=== PATIENT | female | born 1950 | race Caucasian/White ===

== ENCOUNTER 2017-09-08 00:32 | Emergency (ER) | payer MEDICARE ==
[~2017-09-08] VITALS: Ht 172.7 cm; Wt 127.0 kg
[~2017-09-08 00:32] MED LIST: ALLOPURINOL300 MG PO; CARTIA XT120 MG PO; DIGOXIN125 MCG PO; FENOFIBRATE160 MG PO; LANTUS SOL100 UNIT/1 SUB-Q; LIPITOR10 MG PO; METFORMIN HCL1000 MG PO; METOPROLOL SUC100 MG PO; METOPROLOL TART50 MG PO; NOVOLOG FL100 UNIT/1 SUB-Q; OMEPRAZOLE20 MG PO; TRIAMTERENE-HC1 EAC1 PO; XARELTO20 MG PO
[2017-09-08] MEDS ORDERED: SOTALOL80 MG PO (00:48)
[2017-09-08] MEDS ORDERED: LASIX40 MG PO (00:48)
[2017-09-08] MEDS ORDERED: POTASSIUM CHLO10 MEQ PO (00:48)
[2017-09-08] MEDS ORDERED: LISINOPRIL5 MG PO (00:49)
[2017-09-08] MEDS ORDERED: GABAPENTIN300 MG PO (00:49)
--- NOTE | 2017-09-09 14:46 | EKG ---
[facility] [address] [place] [address] Signed Normal sinus rhythm Normal ECG When compared with ECG of 30-AUG-2016 10:45, Sinus rhythm has replaced Atrial fibrillation Confirmed by SONYA DOBBS MD ([id number]) on 09/09/2017 2:46:35 PM Electronically Signed By: SONYA DOBBS MD 09/09/17 1446 PATIENT NAME: ALLISON NEGRO Electrocardiogram DATE OF : 50 PHYSICIAN: SONYA DOBBS MD REPORT #: [id number] REPORT IS CONFIDENTIAL AND NOT TO BE RELEASED WITHOUT AUTHORIZATION
== END 2017-09-08 04:44 | disposition home or self-care (01) ==
LOC: ED 00:32
DX: R07.9 Chest pain, unspecified (principal); I10 Essential (primary) hypertension; E11.9 Type 2 diabetes mellitus without complications; I48.91 Unspecified atrial fibrillation; Z91.09 Other allergy status, other than to drugs and biological substances; Z79.4 Long term (current) use of insulin; Z79.899 Other long term (current) drug therapy; Z79.84 Long term (current) use of oral hypoglycemic drugs
CPT/HCPCS: 80053; 84484; 85025; 93005; 93010; 99284

== ENCOUNTER 2018-05-03 16:52 | Emergency (ER) | payer MEDICARE ==
[~2018-05-03] VITALS: Ht 172.7 cm; Wt 131.5 kg
--- OUTSIDE RECORDS SUMMARY | ~2018-05-03 | XMS | Clinical Summary ---
Demographics + + + | Address | [address] | | | [place] [address] | + + + | Home Phone | | + + + | Preferred Language | Unknown | + + + | Marital Status | | + + + | Jainism Affiliation | 1041 | + + + | Race | Unknown | + + + | Ethnic Group | Unknown | + + + Author + + + | Author | [facility] | + + + | Organization | [facility] | + + + | Address | Unknown | + + + | Phone | Unavailable | + + + Support + + + + + | Name | Relationship | Address | Phone | + + + + + | Cindi Salamanca | ECON | [address] | | | | | [place] | | | | | [phone] | | + + + + + Care Team Providers + +------+ + | Care Nurse Licensed Practical Name | Role | Phone | + +------+ + | Pete Shelton MD | PP | | + +------+ + Allergies + + + + + + | Active Allergy | Reactions | Severity | Noted | Comments | | | | | Date | | + + + + + + | Povidone Iodine | Hives | High | 02/17/20 | | | | | | 14 | | + + + + + + | Adhesive Tape | Hives | High | 02/17/20 | | | | | | 14 | | + + + + + + Current Medications + + +---------+---------+------+------+-------+ | Prescription | Sig. | Disp. | Refills | Star | End | Statu | | | | | | t | Date | s | | | | | | Date | | | + + +---------+---------+------+------+-------+ | fenofibrate | Take 160 mg by mouth | | | | | Activ | | (TRICOR) 160 MG | daily. | | | | | e | | tablet | | | | | | | + + +---------+---------+------+------+-------+ | metFORMIN | Take 1,000 mg by | | | | | Activ | | (GLUMETZA) 1000 MG | mouth 2 (two) times | | | | | e | | (MOD) 24 hr tablet | daily with meals. | | | | | | + + +---------+---------+------+------+-------+ | rivaroxaban | Take 20 mg by mouth | | | | | Activ | | (XARELTO) 20 MG | daily with dinner. | | | | | e | | tablet | | | | | | | + + +---------+---------+------+------+-------+ | | Take 1 tablet by | | | | | Activ | | triamterene-hydrochl | mouth daily. | | | | | e | | orothiazide | | | | | | | | (MAXZIDE-25) 37.5-25 | | | | | | | | MG per tablet | | | | | | | + + +---------+---------+------+------+-------+ | allopurinol | Take 300 mg by mouth | | | | | Activ | | (ZYLOPRIM) 300 MG | daily. | | | | | e | | tablet | | | | | | | + + +---------+---------+------+------+-------+ | digoxin (LANOXIN) | Take 125 mcg by | | | | | Activ | | 0.125 MG tablet | mouth daily. | | | | | e | + + +---------+---------+------+------+-------+ | insulin aspart | Inject 6 Units into | 10 mL | 0 | 08/2 | | Activ | | (NOVOLOG) 100 | the skin 3 (three) | | | 6/20 | | e | | UNIT/ML | times daily before | | | 14 | | | | injectionIndications | meals. | | | | | | | : Atrial | | | | | | | | fibrillation with | | | | | | | | RVR ([facility]), ARF | | | | | | | | (acute renal | | | | | | | | failure) ([facility]), | | | | | | | | Diabetes mellitus, | | | | | | | | type 2 ([facility]), GERD | | | | | | | | (gastroesophageal | | | | | | | | reflux disease), | | | | | | | | Hypertension, | | | | | | | | Hypomagnesemia, | | | | | | | | Leukocytosis, | | | | | | | | unspecified, Long | | | | | | | | term (current) use | | | | | | | | of anticoagulants, | | | | | | | | TAYLOR on CPAP, | | | | | | | | Palpitations, SOB | | | | | | | | (shortness of | | | | | | | | breath), | | | | | | | | Hyperlipidemia, | | | | | | | | Atrial fibrillation | | | | | | | | ([facility]) | | | | | | | + + +---------+---------+------+------+-------+ | insulin glargine | Inject 10 Units into | 15 mL | 0 | 01/25 | | Activ | | (LANTUS) 100 UNIT/ML | the skin nightly. | | | 12/13 | | e | | | | | | 14 | | | | injectionIndications | | | | | | | | : Atrial | | | | | | | | fibrillation with | | | | | | | | RVR (HCC), ARF | | | | | | | | (acute renal | | | | | | | | failure) (HCC), | | | | | | | | Diabetes mellitus, | | | | | | | | type 2 (HCC), GERD | | | | | | | | (gastroesophageal | | | | | | | | reflux disease), | | | | | | | | Hypertension, | | | | | | | | Hypomagnesemia, | | | | | | | | Leukocytosis, | | | | | | | | unspecified, Long | | | | | | | | term (current) use | | | | | | | | of anticoagulants, | | | | | | | | TAYLOR on CPAP, | | | | | | | | Palpitations, SOB | | | | | | | | (shortness of | | | | | | | | breath), | | | | | | | | Hyperlipidemia, | | | | | | | | Atrial fibrillation | | | | | | | | (HCC) | | | | | | | + + +---------+---------+------+------+-------+ | metoprolol | Take 1 tablet by | 60 | 0 | 01/25 | | Activ | | (LOPRESSOR) 50 MG | mouth 2 (two) times | tablet | | 12/13 | | e | | tabletIndications: | daily. | | | 14 | | | | Atrial fibrillation | | | | | | | | with RVR (HCC), ARF | | | | | | | | (acute renal | | | | | | | | failure) (HCC), | | | | | | | | Diabetes mellitus, | | | | | | | | type 2 (HCC), GERD | | | | | | | | (gastroesophageal | | | | | | | | reflux disease), | | | | | | | | Hypertension, | | | | | | | | Hypomagnesemia, | | | | | | | | Leukocytosis, | | | | | | | | unspecified, Long | | | | | | | | term (current) use | | | | | | | | of anticoagulants, | | | | | | | | TAYLOR on CPAP, | | | | | | | | Palpitations, SOB | | | | | | | | (shortness of | | | | | | | | breath), | | | | | | | | Hyperlipidemia, | | | | | | | | Atrial fibrillation | | | | | | | | (HCC) | | | | | | | + + +---------+---------+------+------+-------+ | diltiazem | Take 1 capsule by | 30 | 0 | 08/2 | | Activ | | (CARDIZEM CD) 120 MG | mouth daily. | capsule | | 6/20 | | e | | 24 hr | | | | 14 | | | | capsuleIndications: | | | | | | | | Atrial fibrillation | | | | | | | | with RVR (HCC), ARF | | | | | | | | (acute renal | | | | | | | | failure) (HCC), | | | | | | | | Diabetes mellitus, | | | | | | | | type 2 (HCC), GERD | | | | | | | | (gastroesophageal | | | | | | | | reflux disease), | | | | | | | | Hypertension, | | | | | | | | Hypomagnesemia, | | | | | | | | Leukocytosis, | | | | | | | | unspecified, Long | | | | | | | | term (current) use | | | | | | | | of anticoagulants, | | | | | | | | TAYLOR on CPAP, | | | | | | | | Palpitations, SOB | | | | | | | | (shortness of | | | | | | | | breath), | | | | | | | | Hyperlipidemia, | | | | | | | | Atrial fibrillation | | | | | | | | (FORM[facility]LY [facility]) | | | | | | | + + +---------+---------+------+------+-------+ Active Problems + + + | Problem | Noted Date | + + + | Atrial fibrillation with RVR | 02/16/2014 | + + + | Palpitations | 02/16/2014 | + + + | SOB (shortness of breath) | 02/16/2014 | + + + | Leukocytosis, unspecified | 02/16/2014 | + + + | Hypomagnesemia | 02/16/2014 | + + + | ARF (acute renal failure) | 02/16/2014 | + + + | group home (current) use of anticoagulants | | + + + | TAYLOR on CPAP | | + + + | Hyperlipidemia | | + + + | Hypertension | | + + + | Atrial fibrillation (HCC) | | + + + | Diabetes mellitus, type 2 | | + + + | GERD (gastroesophageal reflux disease) | | + + + Family History + + +------+ + | Medical History | Relation | Name | Comments | + + +------+ + | Diabetes | Father | | | + + +------+ + | Diabetes | Mother | | | + + +------+ + + +------+ + + | Relation | Name | Status | Comments | + +------+ + + | Father | | | | + +------+ + + | Mother | | | | + +------+ + + Social History + +-------+ +--------+------+ | Tobacco Use | Types | Packs/Day | Years | Date | | | | | Used | | + +-------+ +--------+------+ | Never Smoker | | | | | + +-------+ +--------+------+ + + +---------+ + | Alcohol Use | Drinks/We | oz/Week | Comments | | | ek | | | + + +---------+ + | No | | | | + + +---------+ + + + + | Sex Assigned at | Date Recorded | | | | + + + | Not on file | | + + + Last Filed Vital Signs + + + + | Vital Sign | Reading | Time Taken | + + + + | Blood Pressure | 122/62 | 02/18/2014 8:29 AM PDT | + + + + | Pulse | 75 | 02/18/2014 8:29 AM PDT | + + + + | Temperature | 36.7 C (98.1 F) | 02/18/2014 8:29 AM PDT | + + + + | Respiratory Rate | 20 | 02/18/2014 8:29 AM PDT | + + + + | Oxygen Saturation | 95% | 02/18/2014 8:29 AM PDT | + + + + | Inhaled Oxygen | - | - | | Concentration | | | + + + + | Weight | 135 kg (297 lb 9.9 | 02/18/2014 6:12 AM PDT | | | oz) | | + + + + | Height | 172.7 cm (5' 8") | 02/16/2014 7:00 PM PDT | + + + + | Body Mass Index | 45.25 | 02/18/2014 6:12 AM PDT | + + + + Plan of Treatment Not on file Results Not on filefrom Last 3 Months Insurance + +--------+ +------+-------+ + | Payer | Benefi | Subscriber | Type | Phone | Address | | | t Plan | ID | | | | | | / | | | | | | | Group | | | | | + +--------+ +------+-------+ + | [employer] | [employer]DS | [id number] | | | | | | HEALTH | | | | | | | PLAN | | | | | + +--------+ +------+-------+ + | MEDICAID | [place] | [id number] | | | [address] | | | N | | | | [place] | | | [place] | | | | [phone] | | | GAMBLING SUPERVISOR | | | | | + +--------+ +------+-------+ + + +--------+ +--------+ + + | Guarantor Name | Accoun | Relation to | Date | Phone | Billing Address | | | t Type | Patient | of | | | | | | | | | | + +--------+ +--------+ + + | NGUYEN SALAMANCA | Person | Self [birth year] Home: | [address] [place] [address] | | | al/Fam | | [phone] | [phone] [place] | | | jean-pierre | | [phone] | + +--------+ +--------+ + +
--- OUTSIDE RECORDS SUMMARY | ~2018-05-03 | XMS | Encounter Summary ---
Demographics + + + | Address | [address] | | | [place] [address] | + + + | Home Phone | | + + + | Preferred Language | Unknown | + + + | Marital Status | | + + + | Faith Affiliation | 1041 | + + + | Race | Unknown | + + + | Ethnic Group | Unknown | + + + Author + + + | Author | [facility] | | | and [place] | + + + | Organization | [facility] | | | and [place] | + + + | Address | Unknown | + + + | Phone | Unavailable | + + + Support + + +---------+ + | Name | Relationship | Address | Phone | + + +---------+ + | Treva Salamanca | ECON | Unknown | | + + +---------+ + Care Team Providers + +------+ + | Care Intelligence Clerk Name | Role | Phone | + +------+ + | Pete Shelton | PCP | | | MD | | | + +------+ + Reason for Visit + + + | Reason | Comments | + + + | Device Check | Billed | | (Remote) | | + + + Encounter Details +--------+ + + + + | Date | Type | Department | Care Team | Description | +--------+ + + + + | 03/25/ | Implant | [facility] | ClaudioashleighstephenieDeangelo, | Remote Device | | 2017 | Monitor | CARDIOLOGY [address] | MD [address] | Interrogation | | | | [place], | [place], | (Primary Dx); Status | | | | [place] [address] | [place] [id number] | post placement of | | | | [phone] | [phone] | implantable loop | | | | | | recorder Medtronic | | | | | | Shayla 09/19/16; | | | | | | Paroxysmal atrial | | | | | | fibrillation (HCC) | +--------+ + + + + Social History + +-------+ +--------+------+ | Tobacco Use | Types | Packs/Day | Years | Date | | | | | Used | | + +-------+ +--------+------+ | Never Smoker | | | | | + +-------+ +--------+------+ + +---+---+---+ | Smokeless Tobacco: | | | | | Never Used | | | | + +---+---+---+ + + + | Sex Assigned at | Date Recorded | | | | + + + | Not on file | | + + + as of this encounter Functional Status + + + + | Functional Status | Response | Date of Assessment | + + + + | Are you deaf or do you have serious | Yes - Patient states | 01/02/2017 | | difficulty hearing? | sometimes | | + + + + | Are you blind or do you have serious | Patient states she | 01/02/2017 | | difficulty seeing, even when wearing | is starting to get | | | glasses? | Cataracts | | + + + + | Do you have serious difficulty walking or | No | 01/02/2017 | | climbing stairs? (5 years old or older) | | | + + + + | Do you have difficulty dressing or bathing? | No | 01/02/2017 | | (5 years old or older) | | | + + + + | Because of a physical, mental, or emotional | No | 01/02/2017 | | condition, do you have difficulty doing | | | | errands alone such as visiting a doctor's | | | | office or shopping? [15 years old or | | | | older)] | | | + + + + + + + + | Cognitive Status | Response | Date of Assessment | + + + + | Because of a physical, mental, or emotional | No | 01/02/2017 | | condition, do you have serious difficulty | | | | concentrating, remembering, or making | | | | decisions? (5 years old or older) | | | + + + + as of this encounter Plan of Treatment +--------+---------+ + + + | Date | Type | Specialty | Care Team | Description | +--------+---------+ + + + | 10/11/ | Office | Cardiology | ClaudiomarcycarmitaDeangelo, | | | 2018 | Visit | | [address] [facility] | | | | | | [place], | | | | | | [place] [id number] | | | | | | [phone] | | | | | | | | +--------+---------+ + + + as of this encounter Procedures + +--------+ + + + | Procedure Name | Priori | Date/Time | Associated Diagnosis | Comments | | | ty | | | | + +--------+ + + + | DEVICE | Routin | 03/25/2018 | Remote Device | Results for this | | INTERROGATION- | e | 8869 PDT | Interrogation | procedure are in the | | REMOTE | | | Status post | results section. | | | | | placement of | | | | | | implantable loop | | | | | | recorder Medtronic | | | | | | Shayla 09/19/16 | | | | | | Paroxysmal atrial | | | | | | fibrillation (HCC) | | + +--------+ + + + in this encounter Results Device Interrogation - Remote (03/25/2018 2359) + + + | Narrative | Performed At | + + + | [facility] | | MD Shayla 04/06/2018 14:51Date of Remote Interrogation: | | | 03/25/2018 Refer to [facility] documentation and remote PDF scanned into | | | [facility] for remote interrogation results. Data collected by Marisela Dove | | | [place] Presenting rhythm: Sinus bradycardia to sinus rhythm | | | 58-63 beats. No episodes. % of time in AT/AF 0.0 %Histogram | | | good. Battery ok.Apparent normal and stable function.Device | | | interrogation due in office in 04/06/2018. | | |beats. | | |No episodes. | | |% of time in AT/AF 0.0 % | | |Histogram good. Battery ok. | | |Apparent normal and stable function. | | |Device interrogation due in office in 04/06/2018. | | | | | | | | + + + + +---------+ + + | Performing | Address | City/State/Zipcode | Phone Number | | Organization | | | | + +---------+ + + | [facility] | | | | + +---------+ + + in this encounter Visit Diagnoses + + | Diagnosis | + + | Remote Device Interrogation - Primary | + + | Status post placement of implantable loop recorder Medtronic Ayeshastephenie 09/19/16 | + + | Paroxysmal atrial fibrillation (HCC) | + + | Atrial fibrillation | + +"
--- OUTSIDE RECORDS SUMMARY | ~2018-05-03 | XMS | Encounter Summary ---
Demographics + + + | Address | [address] | | | [place] [address] | + + + | Home Phone | | + + + | Preferred Language | Unknown | + + + | Marital Status | | + + + | Baptist Affiliation | 1041 | + + + | Race | Unknown | + + + | Ethnic Group | Unknown | + + + Author + + + | Author | [facility] | | | and [place] | + + + | Organization | [facility] | | | and [place] | [...] Team Providers + +------+ + | Care Wharf Tender Helper Name | Role | Phone | + +------+ + | Pete Shelton | PCP | | | MD | | | + +------+ + Reason for Visit +---------+ + | Reason | Comments | +---------+ + | Results | | +---------+ + Encounter Details +--------+ + + + + | Date | Type | Department | Care Team | Description | +--------+ + + + + | 09// | Telephone | [facility] | Deangelo Mcguire, | Results | | 2017 | | CARDIOLOGY [address] | MD [address] | | | | | [place], | [place], | | | | | [place] [address] | [place] [address] | | | | | [phone] | [phone] | | | | | | | | +--------+ + + + + Social [...] | 10/11/ | Office | Cardiology | Deangelo Mcguire, | | | 2019 | Visit | | MD [address] | | | | | | [place], | | | | | | [place] [address] | | | | | | [phone] | | | | | | | | +--------+---------+ + + + as of this encounter Visit Diagnoses Not on filein this encounter"
--- OUTSIDE RECORDS SUMMARY | ~2018-05-03 | XMS | Encounter Summary ---
Demographics + + + | Address | [address] | | | [place] [address] | + + + | Home Phone | | + + + | Preferred Language | Unknown | + + + | Marital Status | | + + + | Zoroastrianism Affiliation | 1041 | + + + | Race | Unknown | + + + | Ethnic Group | Unknown | + + + Author + + + | Author | [facility] | | | and [place] | + + + | Organization | [facility] | | | and [...] Team Providers + +------+ + | Care Sand Mixer Machine Name | Role | Phone | + +------+ + | Pete Shelton | PCP | | | MD | | | + +------+ + Reason for Visit + + + | Reason | Comments | + + + | Device Check | | | (Remote) | | + + + Encounter Details +--------+ + + + + | Date | Type | Department | Care Team | Description | +--------+ + + + + | 03/25/ | Implant | [facility] | ClaudioashleighstephenieDeangelo, | Remote Device | | 2017 | Monitor | CARDIOLOGY [address] | MD [address] | Interrogation | | | | [place], | [place], | (Primary Dx); Status | | | | [place] [address] | [place] [address] | post placement of | | | | [phone] | [phone] | implantable loop | | | | [...] | 10/11/ | Office | Cardiology | ClaudioashleighstephenieDeangelo, | | | 2018 | Visit | | [address] [place] | | | | | | [place], | | | | | | [place] [address] | | | | | | [phone] | | | | | | | [...] this | | INTERROGATION- | e | 2359 PDT | Interrogation | procedure are in [...] At | + + + | [facility]angel[facility] | JOVANNA | | MD Shayla 03/26/2018 11:16Date of Remote Interrogation: | | | 03/05/2018 Refer to [facility] documentation and remote PDF scanned into | | | [facility] for remote interrogation results. Data collected by Marisela Dove | | | [place] Presenting rhythm: Sinus rhythm 70-76 beats.1 Symptom | | | Episode#31 occurred 03/05/18 at 5:54 PM. EGM is consistent with sinus | | | bradycardia to sinus rhythm 57-87 beats with occasional PACs. 0 Tachy | | | Episodes0 Pause Episodes 0 Genaro Episodes 0 AT Episodes 0 AF Episodes | | | % of time in AT/AF 0.0 %Histogram good. Battery ok.Apparent normal | | | and stable function.Device interrogation due in office in June | | | 2019.Patient notified.This transmission was related to an alert and is | | | not billable. | | |0 Pause Episodes | | |0 Genaro Episodes | | |0 AT Episodes | | |0 AF Episodes | | |% of time in AT/AF 0.0 % | | |Histogram good. Battery ok. | | |Apparent normal and stable function. | | |Device interrogation due in office in June 2018. | | |Patient notified. | | |This transmission was related to an alert and is not billable. | | | | | + + [...] Status post placement of implantable loop recorder Tito Mcguire 09/19/16 | + + | Paroxysmal atrial fibrillation (HCC) | + + | Atrial fibrillation | + +"
--- OUTSIDE RECORDS SUMMARY | ~2018-05-03 | XMS | Encounter Summary ---
Demographics + + + | Address | [address] | | | [place] [address] | + + + | Home Phone | | + + + | Preferred Language | Unknown | + + + | Marital Status | | + + + | Rastafari Affiliation | 1041 | + + + | Race | Unknown | + + + | Ethnic Group | Unknown | + + + Author + + + | Author | [facility] | | | and [place] | + + + | Organization | [facility] | | | and [place] | + + + | Address | Unknown | + + + | Phone | Unavailable | + + + Support + + +---------+ + | Name | Relationship | Address | Phone | + + +---------+ + | rTeva Salamanca | ECON | Unknown | | + + +---------+ + Care Team Providers + +------+ + | Care Boiler/Chiller Operator Name | Role | Phone | + [...] CARDIOLOGY [address] | MD [address] | Interrogation | | | | [place], | [place], | (Primary Dx); Status | | | | [place] [address] | [place] [address] | post placement of | | | | [phone] | [phone] | implantable loop | | | | [...] | 2018 | Visit | | [address] [facility] | | | | | | [place], | | | | | | [place] [address] | | | | | | [phone] | | | | | | | [...] this | | INTERROGATION- | e | 7639 PDT | Interrogation | procedure are in [...] remote PDF scanned into | | | [facility] for remote interrogation results. Data collected [...]
--- OUTSIDE RECORDS SUMMARY | ~2018-05-03 | XMS | Encounter Summary ---
Demographics + + + | Address | [address] | | | [place] [address] | + + + | Home Phone | | + + + | Preferred Language | Unknown | + + + | Marital Status | | + + + | Restorationism Affiliation | 1041 | + + + | Race | Unknown | + + + | Ethnic Group | Unknown | + + + Author + + + | Author | [facility] | | | and [place] | + + + | Organization | [facility] | | | and [...] Team Providers + +------+ + | Care Schedule Clerk Name | Role | Phone | + +------+ + | Pete Shelton | PCP | | | MD | | | + +------+ + Reason for Visit + + + | Reason | Comments | + + + | Follow-up | | + + + | Atrial Fibrillation | | + + + | Hypertension | | + + + Encounter Details +--------+---------+ + + + | Date | Type | Department | Care Team | Description | +--------+---------+ + + + | 04/06/ | Office | [facility] | Deangelo Mcguire, | Atrial fibrillation, | | 2017 | Visit | CARDIOLOGY [address] | unspecified type | | | | [place], | [place], | ([facility]) (Primary Dx) | | | | [place] [address] | [place] [address] | | | | | [phone] | [phone] | | | | | | | | +--------+---------+ + + + Social History + +-------+ [...] + + + as of this encounter Last Filed Vital Signs + + + + | Vital Sign | Reading | Time Taken | + + + + | Blood Pressure | 136/70 | 04/06/2018836 PDT | + + + + | Pulse | 62 | 04/06/2018836 PDT | + + + + | Temperature | - | - | + + + + | Respiratory Rate | 16 | 04/06/2018836 PDT | + + + + | Oxygen Saturation | - | - | + + + + | Inhaled Oxygen | - | - | | Concentration | | | + + + + | Weight | 125.6 kg (277 lb) | 04/06/2018836 PDT | + + + + | Height | 172.7 cm (5' 8") | 04/06/2018836 PDT | + + + + | Body Mass Index | 42.12 | 04/06/2018 0837 PDT | + + + + in this encounter Functional Status + + + [...] + + + as of this encounter Progress Notes Deangelo Mcguire MD - 04/06/2018 0900 PDTFormatting of this note may be different from hansa gautam. PATIENT NAME: Nguyen Salamanca : 1950: AGE: 67 y.o. PRIMARY CARE: Pete Shelton MD OUTPATIENT FOLLOW UP VISIT Date of Service: 04/06/2018 HISTORY OF PRESENT ILLNESS: Nguyen Salamanca is a 67 y.o. female with a history of persistent typical atrial flutter with variable conduction, paroxysmal atrial fibrillation, status post loop recorder implant 09/19, obstructive sleep apnea, type II diabetes, essential hypertension , mixed hyperlipidemi a, morbidly obesity and inactivity. She is being seen today for follow up for atrial fibril lation/flutter. She was last seen 07/20/2017 at which time patient was switched from Maxzide to furosemide 4 0 mg once a day to reduce leg swelling. Since that time, patient reports in the past two we eks she has been feeling occasional palpitations. Patient has lost 25 lbs and her A1c has we nt down. Patient is physically inactive due to leg and knee pain. There is no chest pain or chest discomfort both at rest and on exertion. Patient denies breathlessness. There is no di zziness or lightheadedness. There is no ankle or leg swelling. Patient can sleep on one pill ow at night without difficulty breathing. MEDICAL, SURGICAL, AND PERSONAL HISTORY Past Medical, Surgical, Family, and Social History are reviewed in EPIC. CURRENT PROBLEMS Patient Active Problem List Diagnosis Paroxysmal atrial fibrillation Atrial flutter Benign paroxysmal positional vertigo Type II diabetes mellitus Essential hypertension with goal blood pressure less than 130/80 Hyperlipoproteinemia Spondylolisthesis, lumbar region Dysmetabolic syndrome X Postcholecystectomy syndrome Restless leg syndrome Arthritis Obstructive sleep apnea Mixed hyperlipidemia Sleep apnea Morbid obesity Encounter for loop recorder check Status post placement of implantable loop recorder Help Scout Ayeshastephenie 09/19/16 CURRENT MEDICATIONS Current Outpatient Prescriptions Medication Sig Dispense Refill allopurinol (ZYLOPRIM) 300 mg tablet Take 300 mg by mouth Daily. 0 atorvaSTATin (LIPITOR) 40 mg tablet take 1 tablet by mouth NIGHTLY 90 tablet 3 furosemide (LASIX) 40 mg tablet Take 1 tablet by mouth Daily. 90 tablet 3 gabapentin (NEURONTIN) 300 mg capsule Take 1 capsule by mouth every evening. 30 capsule 1 Insulin Pen Needle (BD PEN NEEDLE MARILEE U/F) 32G X 4 MM MISC by Does not apply route. LANTUS SOLOSTAR 100 UNIT/ML injection (pen) Inject 30 Units under the skin nightly. 0 lisinopril (PRINIVIL, ZESTRIL) 5 mg tablet take 1 tablet by mouth every evening 90 tabl et 3 magnesium 200 MG TABS tablet Take magnesium citrate 200 mg daily by mouth x 2 weeks, th en increase to 400 mg by mouth daily 60 each 5 metFORMIN (GLUCOPHAGE) 1000 MG tablet Take 1,000 mg by mouth 2 times daily. 0 NOVOLOG FLEXPEN 100 UNIT/ML injection pen inject 6 units subcutaneously three times a d ay before meals 0 ONE TOUCH ULTRA TEST strip 0 potassium chloride (MICRO-K) 10 mEq CR capsule take 1 capsule by mouth once daily 30 ca psule 5 sotalol (BETAPACE) 80 mg tablet take 1 tablet by mouth twice a day 180 tablet 3 XARELTO 20 MG tablet Take 20 mg by mouth Daily. 0 No current facility-administered medications for this visit. ALLERGIES Allergies Allergen Reactions Adhesive & Tape Hives bandaids Iodine Rash Povidone Iodine Rash ROS Review of Systems Constitutional: Negative for malaise/fatigue. Respiratory: Negative for shortness of breath. Cardiovascular: Positive for palpitations and leg swelling. Negative for chest pain. Neurological: Positive for dizziness. Negative for weakness. Lightheaded = No OBJECTIVE: PHYSICAL EXAM BP 136/70 | Pulse 62 | Resp 16 | Ht 1.727 m (5' 8") | Wt 125.6 kg (277 lb) | BMI 42.12 kg/m Physical Exam Constitutional: She is oriented to person, place, and time. She appears well-developed and well-nourished. Neck: Normal carotid pulses and no JVD present. Carotid bruit is not present. Cardiovascular: Normal rate, regular rhythm, S1 normal, S2 normal, normal heart sounds and intact distal pulses. PMI is not displaced. Exam reveals no gallop and no friction rub. No murmur heard. Pulses: Carotid pulses are 2+ on the right side, and 2+ on the left side. Posterior tibial pulses are 2+ on the right side, and 2+ on the left side. Pulmonary/Chest: Effort normal and breath sounds normal. No accessory muscle usage. No resp iratory distress. She has no wheezes. She has no rhonchi. She has no rales. Abdominal: Soft. Normal appearance and normal aorta. She exhibits no abdominal bruit. There is no hepatosplenomegaly. There is no tenderness. Musculoskeletal: She exhibits no edema. Neurological: She is alert and oriented to person, place, and time. Gait normal. Skin: Skin is warm and dry. No cyanosis. Nails show no clubbing. Psychiatric: She has a normal mood and affect. Her mood appears not anxious. She does not e xhibit a depressed mood. LAB RESULTS reviewed during visit today primarily from [facility]: LIPID Lab Results Component Value Date CHOLHDL 3.0 04/03/2017 LDLEX 47 04/03/2017 HDLEX 39.8 04/03/2017 TRIGEX 170 (A) 04/03/2017 CHOLEX 121 04/03/2017 CHEMISTRY Lab Results Component Value Date GLU 151 (H) 01/03/2017 GLUEX 211 (A) 08/04/2017 NA 139 01/03/2017 NAEX 143 08/04/2017 K 3.5 01/03/2017 KEX 3.9 08/04/2017 CL 103 01/03/2017 CLEX 104 08/04/2017 CO2 25 01/03/2017 CO2EX 24 08/04/2017 CALCIUM 8.3 01/03/2017 ASTEX 18 04/03/2017 ALTEX 17 04/03/2017 CREA 0.77 01/03/2017 BUN 14 01/03/2017 EGFREX 93 08/04/2017 CREEX 0.64 (A) 08/04/2017 HEMATOLOGY Lab Results Component Value Date WBCEX 12.4 (A) 04/03/2017 HGBEX 13.0 04/03/2017 HCTEX 39.0 04/03/2017 PLTEX 266 04/03/2017 Above data and testing is reviewed this visit; testing below is historical data unless othe rwise specified. ASSESSMENT: 1.Persistent typical atrial flutter variable conduction (s/p ablation), now also paroxysm al atrial fibrillation with rapid ventricular response: A. Patient was being seen by Terrence Shen MD her overweaver in [place] that left the practice last year. She underwent cardioversion in the past. Two days ago she started having palpitations and took her pulse that was between 106 to 11 0 and her blood pressure that went up to 160. B. Echocardiogram 05/13/2016 shows normal 2-D echo/M-mode/Doppler/c olor Doppler study. C. BRITTANY 08/04/2016 shows underlying rhythm is atrial flutter, normal c avity size with normal systolic function, left ventricular ejection fraction (LV EF) is carin mated to be 55%, right ventricle: Mild to moderately enlarged cavity size with borderline re duced systolic function, left atrium: Enlarged in size. There is no spontaneous echocardiogr aphic contrast. There is no thrombus seen, left atrial appendage: Large in size. There is no spontaneous echocardiographic contrast. There is no thrombus seen, pulmonary veins were not evaluated, right atrium: Severely enlarged in size. There is no spontaneous echocardiograph ic contrast. There is no thrombus seen, interatrial septum: There is no shunting by color fl ow Doppler imaging. This occurred spontaneously. There is lipomatous hypertrophy noted, aort ic valve: The valve has 3 leaflets. There is no stenosis and trace regurgitation. There are no vegetations, there is no mitral valve prolapse, there is no stenosis and mild regurgitati on. There are no vegetations, tricuspid valve: There is trace regurgitation. There are no ve getations, pulmonic valve: There is trace regurgitation, there are no vegetation, aortic christina t is normal in size, ascending aorta is mildly dilated in size with moderate atheroma, aorti c arch has mild atheroma, descending thoracic aorta has mild atheroma, there is no pericardi al effusion. D. Ablation 08/04/2016 by Hudson Agustin MD shows baseline atrial flutter, normal atrioventricular node physiology, retrograde atrioventricular node conducti on present, normal infranodal conduction, counterclockwise isthmus dependent right atrial fl utter, successful catheter ablation with creation of cavo-tricuspid isthmus block. E. Post cardioversion 08/16/2016. ECG at that visit at [facility] shows atrial fibrillation with rapid ventricular response 152 beats per minute. F.Recurrent event 08/30/16 seen by emergency department at [facility]. Initial ECG shows atrial fibrillation with ventricular response 136 beats per minute. She self converted with IV magnesium and diltiazem. G.Status post [employer] Reveal LINQ loop recorder implanted . H. status post cardioversion with initiation of sotalol on 01/03/2017 I. Today, patient reports in the past two weeks she has been feeling occasional palpitati ons. Patient has lost 25 lbs and her A1c has went down. Patient is physically inactive due t o leg pain. There is no signs and symptoms of overt congestive heart failure. She is in a cl ass I of [place] [employer] functional class. There is no fluid retention on physic al examination. Risk of stroke is reviewed today; her risk factors are Diabetes (1) and Female Gender (1 ), giving her a [id number] of 2, estimating a 2=2.2% risk of stroke per year in atrial fib rillation. Risk of bleed on anticoagulant is also reviewed today; her risk factors are HTN (1), giving her a HAS-BLED score of 1, patient is at 0-1= Low Risk (1-3.4%) for risk of bleed.She is on Xarelto to minimize risk of stroke. Loop recorder remote download shows brief episode of paroxysmal atrial fibrillation in Dec. Since then, she has been having some PACs. If her symptoms of palpitation cannot be controlled by medications from recurrent atrial f ibrillation, she may be a candidate for a repeat ablation. We decided to keep an eye on her for now. 2. Essential hypertension with goal blood pressure less than 130/80: A. Blood pressure in office today is good. 3. Hyperlipidemia, mixed: A. Patient is now on atorvastatin 40 mg. 4. Obstructive sleep apnea. A. She wears CPAP machine every night but waking up in the middle o f the night to do house work. 5. Type II diabetes mellitus. A. She reports her A1c has went down to 6.2. The 10-year ASCVD risk score ([place] DC Jr., et al., 2013) is: 16.7% Values used to calculate the score: Age: 66 years Sex: Female Is an : No Diabetic: Yes Tobacco smoker: No Systolic Blood Pressure: 140 mmHg Prescribed Antihypertensives: Yes HDL Cholesterol: 44.5 mg/dl Total Cholesterol: 140 mg/dl 6. Obesity A. Patient has been eating better and lost 20 lbs. 7. Inactivity A. She remains inactive due to leg pain. 8. Poor sleep hygiene PLAN: 1. She will continue with current medical regimen. 2. I recommend mind awareness and yoga. 3. I recommend a therapeutic lifestyle change including walking 30 minutes a day, choosing healthy choices of diet , including DASH diet and weight reduction. 4. Follow-up in 6 months OC/thresh check. I, Jayna Nick, am acting as a scribe on behalf of, and in the presence of Deangelo vizcarra MD. I have reviewed and edited this note. Jayna Nick Breaker Mechanic 04/06/2018 I, Deangelo Mcguire MD, personally performed the services described in this documentation, as scribed in my presence and it is both accurate and complete. Jayna Nick, Med Ass t 04/06/2018 8:40 Electronically signed by: Deangelo Mcguire MD [facility] 04/06/2018 Portions of this chart may have been created with [employer] voice recognition software. Occasi onal wrong-word or sound-alike substitutions may have occurred due to the inherent covarrubias itations of voice recognition software. Please read the chart carefully and recognize, using context, where these substitutions have occurred in this encounter Plan of Treatment +--------+---------+ + + + | Date | Type | Specialty | Care Team | Description | +--------+---------+ + + + | 10/11/ | Office | Cardiology | Deangelo Mcguire, | | | 2018 | Visit | | MD [address] | | | | | | [place], | | | | | | [place] [address] | | | | | | [phone] | | | | | | | | +--------+---------+ + + + as of this encounter Visit Diagnoses + + | Diagnosis | + + | Atrial fibrillation, unspecified type (HCC) - Primary | + +
--- OUTSIDE RECORDS SUMMARY | ~2018-05-03 | XMS | Encounter Summary ---
Demographics + + + | Address | [address] | | | [place] [address] | + + + | Home Phone | | + + + | Preferred Language | Unknown | + + + | Marital Status | | + + + | Mormon Affiliation | 1041 | + + + | Race | Unknown | + + + | Ethnic Group | Unknown | + + + Author + + + | Author | [facility] | | | and [place] | + + + | Organization | [facility] | | | and [place] [...] Team Providers + +------+ + | Care College Sports Coach Name | Role | Phone | + [...] CARDIOLOGY [address] | MD [address] | Interrogation | | | | [place], | [place], | (Primary Dx); Status | | | | [place] [address] | [place] [address] | post placement of | | | | [phone] | [phone] | implantable loop | | | | [...] 2018 | Visit | | [address] | | | | | | [place], | | | | | | [place] [address] | | | | | | [phone] | | | | | | | [...] remote PDF scanned into | | | [facility] for remote interrogation results. Data collected by [...]
--- OUTSIDE RECORDS SUMMARY | ~2018-05-03 | XMS | Encounter Summary ---
Demographics + + + | Address | [address] | | | [place] [address] | + + + | Home Phone | | + + + | Preferred Language | Unknown | + + + | Marital Status | | + + + | Yazidism Affiliation | 1041 | + + + | Race | Unknown | + + + | Ethnic Group | Unknown | + + + Author + + + | Author | [facility] | | | and [place] | + + + | Organization | [facility] | | | and [...] Team Providers + +------+ + | Care Advertising Copywriter Name | Role | Phone | + +------+ + | Pete Shelton | PCP | | | MD | | | + +------+ + Reason for Visit + + + | Reason | Comments | + + + | Medication Refill | | + + + Encounter Details +--------+--------+ + + + | Date | Type | Department | Care Team | Description | +--------+--------+ + + + | 03/16/ | Refill | [facility] | Nate, | Medication Refill | | 2017 | | CARDIOLOGY [address] | [place] [employer]ING [employer] MANAGER [address] | | | | | [place], | [place], | | | | | [place] [address] | [place] [address] | | | | | [phone] | [phone] | | | | | | | | +--------+--------+ + + + Social History + +-------+ [...] | | | | | | [place] [address] | | | | | | [phone] | | | | | | | | +--------+---------+ + + + as of this encounter Visit Diagnoses Not on filein this encounter"
--- OUTSIDE RECORDS SUMMARY | ~2018-05-03 | XMS | Clinical Summary ---
Demographics + + + | Address | [address] | | | [place] [address] | + + + | Home Phone | | + + + | Preferred Language | Unknown | + + + | Marital Status | | + + + | Yazidism Affiliation | 1041 | + + + | Race | Unknown | + + + | Ethnic Group | Unknown | + + + Author + + + | Author | [facility] | | | and [place] | + + + | Organization | [facility] | | | and [place] [...] Team Providers + +------+ + | Care Warehouse Coordinator Name | Role | Phone | + +------+ + | Pete Shelton | PP | | | MD | | | + +------+ + Allergies + + + + + + | Active Allergy | Reactions | Severity | Noted | Comments | | | | | Date | | + + + + + + | Adhesive & Tape | Hives | Medium | 05/13/20 | bandaids | | | | | 16 | | + + + + + + | Iodine | Rash | Low | 05/12/20 | | | | | | 16 | | + + + + + + | Povidone Iodine | Rash | Low | 05/13/20 | | | | | | 16 | | + + + + + + Current Medications + + + +---------+------+------+-------+ | Prescription | Sig. | Disp. | Refills | Star | End | Statu | | | | | | t | Date | s | | | | | | Date | | | + + + +---------+------+------+-------+ | allopurinol | Take 300 mg by mouth | | 0 | 02/24 | | Activ | | (ZYLOPRIM) 300 mg | Daily. | | | 02/12 | | e | | tablet | | | | 16 | | | + + + +---------+------+------+-------+ | ONE TOUCH ULTRA | | | 0 | 09/1 | | Activ | | TEST strip | | | | 9/20 | | e | | | | | | 16 | | | + + + +---------+------+------+-------+ | NOVOLOG FLEXPEN | inject 6 units | | 0 | 10/0 | | Activ | | 100 UNIT/ML | subcutaneously three | | | 3/20 | | e | | injection pen | times a day before | | | 16 | | | | | meals | | | | | | + + + +---------+------+------+-------+ | LANTUS SOLOSTAR | Inject 30 Units | | 0 | 08/1 | | Activ | | 100 UNIT/ML | under the skin | | | 2/20 | | e | | injection (pen) | nightly. | | | 16 | | | + + + +---------+------+------+-------+ | metFORMIN | Take 1,000 mg by | | 0 | 09/2 | | Activ | | (GLUCOPHAGE) 1000 MG | mouth 2 times daily. | | | 6/20 | | e | | tablet | | | | 16 | | | + + + +---------+------+------+-------+ | XARELTO 20 MG | Take 20 mg by mouth | | 0 | 02/24 | | Activ | | tablet | Daily. | | | 02/12 | | e | | | | | | 16 | | | + + + +---------+------+------+-------+ | Insulin Pen Needle | by Does not apply | | | | | Activ | | (BD PEN NEEDLE MARILEE | route. | | | | | e | | U/F) 32G X 4 MM | | | | | | | | MISC | | | | | | | + + + +---------+------+------+-------+ | magnesium 200 MG | Take magnesium | 60 each | 5 | 03/0 | | Activ | | TABS tablet | citrate 200 mg daily | | | 02/12 | | e | | | by mouth x 2 weeks, | | | 17 | | | | | then increase to | | | | | | | | 400 mg by mouth | | | | | | | | daily | | | | | | + + + +---------+------+------+-------+ | gabapentin | Take 1 capsule by | 30 | 1 | 07/2 | | Activ | | (NEURONTIN) 300 mg | mouth every evening. | capsule | | 4/20 | | e | | capsule | | | | 17 | | | + + + +---------+------+------+-------+ | sotalol (BETAPACE) | take 1 tablet by | 180 | 3 | 12/2 | | Activ | | 80 mg tablet | mouth twice a day | tablet | | 8/20 | | e | | | | | | 17 | | | + + + +---------+------+------+-------+ | furosemide (LASIX) | Take 1 tablet by | 90 | 3 | 01/2 | | Activ | | 40 mg tablet | mouth Daily. | tablet | | 6/20 | | e | | | | | | 18 | | | + + + +---------+------+------+-------+ | lisinopril | take 1 tablet by | 90 | 3 | 06/2 | 06/2 | Activ | | (PRINIVIL, ZESTRIL) | mouth every evening | tablet | | 7/20 | 7/20 | e | | 5 mg tablet | | | | 18 | 19 | | + + + +---------+------+------+-------+ | potassium chloride | take 1 capsule by | 30 | 5 | 07/0 | | Activ | | (MICRO-K) 10 mEq CR | mouth once daily | capsule | | 9/20 | | e | | capsule | | | | 18 | | | + + + +---------+------+------+-------+ | atorvaSTATin | take 1 tablet by | 90 | 3 | 09/2 | | Activ | | (LIPITOR) 40 mg | mouth NIGHTLY | tablet | | /20 | | e | | tablet | | | | 18 | | | + + + +---------+------+------+-------+ Active Problems + + + | Problem | Noted Date | + + + | Encounter for loop recorder check | 09/20/2016 | + + + | Status post placement of implantable loop recorder Medtronic | 09/19/2016 | | Shayla 09/19/16 | | + + + + + | Overview: Medtronic Reveal Linq Loop Recorder [id number] | | [id number]: Atrial flutter | + + + + + | Sleep apnea | 08/03/2016 | + + + | Morbid obesity (HCC) | 08/03/2016 | + + + | Mixed hyperlipidemia | 05/13/2016 | + + + | Paroxysmal atrial fibrillation (HCC) | | + + + + + | Overview: 01/02/17--Successful DC cardioversion. No apparent | | complicationsNoted on ECGs from [facility] from 08/30/16 and | | 08/16/16.Echocardiogram 05/13/2016 shows normal 2-D | | echo/M-mode/Doppler/color Doppler study. | + + + +---+ | Atrial flutter (HCC) | | + +---+ + + | Overview: Ablation 08/04/2016 shows baseline atrial flutter, | | normal atrioventricular node physiology, retrograde | | atrioventricular node conduction present, normal infranodal | | conduction, counterclockwise isthmus dependent right atrial | | flutter, successful catheter ablation with creation of | | cavo-tricuspid isthmus blockTEE 08/04/2016 shows underlying rhythm | | is atrial flutter, normal cavity size with normal systolic | | function, left ventricular ejection fraction (LV EF) is estimated | | to be 55%, right ventricle: Mild to moderately enlarged cavity | | size with borderline reduced systolic function, left atrium: | | Enlarged in size. There is no spontaneous echocardiographic | | contrast. There is no thrombus seen, left atrial appendage: Large | | in size. There is no spontaneous echocardiographic contrast. | | There is no thrombus seen, pulmonary veins were not evaluated, | | right atrium: Severely enlarged in size. There is no spontaneous | | echocardiographic contrast. There is no thrombus seen, | | interatrial septum: There is no shunting by color flow Doppler | | imaging. This occurred spontaneously. There is lipomatous | | hypertrophy noted, aortic valve: The valve has 3 leaflets. There | | is no stenosis and trace regurgitation. There are no vegetations, | | there is no mitral valve prolapse, there is no stenosis and mild | | regurgitation. There are no vegetations, tricuspid valve: There | | is trace regurgitation. There are no vegetations, pulmonic valve: | | There is trace regurgitation, there are no vegetation, aortic | | root is normal in size, ascending aorta is mildly dilated in size | | with moderate atheroma, aortic arch has mild atheroma, | | descending thoracic aorta has mild atheroma, there is no | | pericardial effusion. | + + + +---+ | Benign paroxysmal positional vertigo | | + +---+ | Type II diabetes mellitus (HCC) | | + +---+ | Essential hypertension with goal blood pressure less than 130/80 | | + +---+ | Hyperlipoproteinemia | | + +---+ | Spondylolisthesis, lumbar region | | + +---+ | Dysmetabolic syndrome X | | + +---+ | Postcholecystectomy syndrome | | + +---+ | Restless leg syndrome | | + +---+ | Arthritis | | + +---+ | Obstructive sleep apnea | | + +---+ Encounters +--------+ + + + + | Date | Type | Specialty | Care Team | Description | +--------+ + + + + | 04/25/ | Implant | | Deangeol Mcguire, | Remote Device | | 2018 | Monitor | | MD | Interrogation | | | | | | (Primary Dx); Status | | | | | | post placement of | | | | | | implantable loop | | | | | | recorder Medtronic | | | | | | Shayla 09/19/16; | | | | | | Paroxysmal atrial | | | | | | fibrillation (HCC) | +--------+ + + + + | 04/06/ | Office | | Deangelo Mcguire, | Atrial fibrillation, | | 2017 | Visit | | MD | unspecified type | | | | | | (HCC) (Primary Dx) | +--------+ + + + + | 03/25/ | Implant | | Deangelo Mcguire, | Remote Device | | 2017 | Monitor | | MD | Interrogation | | | | | | (Primary Dx); Status | | | | | | post placement of | | | | | | implantable loop | | | | | | recorder Medtronic | | | | | | Shayla 09/19/16; | | | | | | Paroxysmal atrial | | | | | | fibrillation (HCC) | +--------+ + + + + | 03/25/ | Implant | | Deangelo Mcguire, | Remote Device | | 2017 | Monitor | | MD | Interrogation | | | | | | (Primary Dx); Status | | | | | | post placement of | | | | | | implantable loop | | | | | | recorder Medtronic | | | | | | Shayla 09/19/16; | | | | | | Paroxysmal atrial | | | | | | fibrillation (HCC) | +--------+ + + + + | 03/16/ | Telephone | | Deangelo Mcguire, | Results | | 2017 | | | MD | | +--------+ + + + + | 03/16/ | Refill | | Nate | Medication Refill | | 2017 | | | SHANON Tovar | | +--------+ + + + + | 02/20/ | Implant | | Deangelo Mcguire, | Remote Device | | 2018 | Monitor | | MD | Interrogation | | | | | | (Primary Dx); Status | | | | | | post placement of | | | | | | implantable loop | | | | | | recorder Medtronic | | | | | | Shayla 09/19/16; | | | | | | Paroxysmal atrial | | | | | | fibrillation (HCC) | +--------+ + + + + from Last 3 Months Immunizations + + + + | Name | Dates Previously Given | Next Due | + + + + | PNEUMOCOCCAL | 08/26/2016 | | | CONJUGATE 13-VALENT | | | | (PCV13) | | | + + + + Family History + + +------+ + | Medical History | Relation | Name | Comments | + + +------+ + | COPD | Father | | | + + +------+ + | COPD | Mother | | | + + +------+ + | Diabetes | Mother | | | + + +------+ + | Heart attack | Mother | | | + + +------+ + | Heart disease | Mother | | | + + +------+ + + +---------+ + + | Relation | Name | Status | Comments | + +---------+ + + | | Ray | Alive | | + +---------+ + + | | 1/2 Noel | Alive | | + +---------+ + + | Brother | Leia | | [place] | | | | (Age | | | | | 13) | | + +---------+ + + | Father | | | | + +---------+ + + | Mother | | | [place] | | | | (Age | | | | | 71) | | + +---------+ + + | Sister | Grisel | Alive | | + +---------+ + + | Sister | Anya | Alive | | + +---------+ + + Social History + +-------+ +--------+------+ [...] + | Blood Pressure | 136/70 | 04/06/2018 0837 PDT | + + + + | Pulse | 62 | 04/06/2018836 PDT | + + + + | Temperature | 36.9 C (98.4 F) | 01/03/20171138 PDT | + + + + | Respiratory Rate | 16 | 04/06/2018836 PDT | + + + + | Oxygen Saturation | 98% | 01/03/20171138 PDT | + + + + | Inhaled Oxygen | - | - | | Concentration | | | + + + + | Weight | 125.6 kg (277 lb) | 04/06/2018836 PDT | + + + + | Height | 172.7 cm (5' 8") | 04/06/2018836 PDT | + + + + | Body Mass Index | 42.12 | 04/06/2018836 PDT | + + + + Plan of Treatment +--------+---------+ + + + | Date | Type | Specialty | Care Team | Description | +--------+---------+ + + + | 10/11/ | Office | | Deangelo Mcguire, | | | 2019 | Visit | | MD Lu Hartmann | | | | | | [place], | | | | | | [place] [address] | | | | | | [phone] | | | | | | | | +--------+---------+ + + + + + + + + | Health Maintenance | Due Date | Last Done | Comments | + + + + + | Hepatitis C | | | | | Screening | 0 | | | + + + + + | Diabetic Eye Exam | | | | | | 8 | | | + + + + + | Diabetic Foot Exam | | | | | | 8 | | | + + + + + | Hemoglobin A1c Q3 | | | | | Months | 8 | | | + + + + + | Vaccine: | | | | | Dtap/Tdap/Td (1 - | 9 | | | | Tdap) | | | | + + + + + | BREAST CANCER | | | | | SCREENING (MAMM Q2 | 0 | | | | YEARS 50-74) | | | | + + + + + | Colorectal Cancer | | | | | Screening | 0 | | | | (Colonoscopy) | | | | + + + + + | Vaccine: Zoster (1 | | | | | of 2) | 0 | | | + + + + + | Adult Annual | | | | | Wellness Visit | 5 | | | + + + + + | Vaccine: | | 08/26/2016 | | | Pneumococcal 65+ | 8 | | | | Low/Medium Risk (2 | | | | | of 2 - PPSV23) | | | | + + + + + | Vaccine: Influenza | | | | | (#1) | 8 | | | + + + + + Implants + +--------+------+ +--------+--------+--------+ | Implanted | Type | Area | Manufacture | Device | Expira | Model | | | | | r | | tion | / | | | | | | Identi | Date | Serial | | | | | | fier | | / Lot | + +--------+------+ +--------+--------+--------+ | Linq [id number]: Qty: 1 | Implan | | MEDTRONIC - | | | | | on 09/19/2016 by Shayla, | table | | MEDT | | | /[id number] | | MD Deangelo | Loop | | | | | [id number] | | | Record | | | | | / | | | er | | | | | | + +--------+------+ +--------+--------+--------+ Procedures + +--------+ + + + | Procedure Name | Priori | Date/Time | Associated Diagnosis | Comments | | | ty | | | | + +--------+ + + + | DEVICE | Routin | 04/25/2018 | Remote Device | Results for this | | INTERROGATION- | e | 2359 PDT | Interrogation | procedure are in the | | REMOTE | | | Status post | results section. | | | | | placement of | | | | | | implantable loop | | | | | | recorder Medtronic | | | | | | [place] 09/19/16 | | | | | | [...] Medtronic | | | | | | [place] 09/19/16 | | | | | | [...] Medtronic | | | | | | [place] 09/19/16 | | | | | | Paroxysmal atrial | | | | | | fibrillation (HCC) | | + +--------+ + + + | DEVICE | Routin | 02/22/2018 | Remote Device | Results for this | | INTERROGATION- | e | 0000 PDT | Interrogation | procedure are in the | | REMOTE | | | Status post | results section. | | | | | placement of | | | | | | implantable loop | | | | | | recorder Medtronic | | | | | | [place] 09/19/16 | | | | | | Paroxysmal atrial | | | | | | fibrillation (HCC) | | + +--------+ + + + from Last 3 Months Results Device Interrogation - Remote (04/25/2018 6194)Only the most recent of 4 results within the time period is included. + + + | Narrative | Performed At | + + + | Deangelo | JOVANNA | | MD Shayla 04/06/2018 14:51Date of Remote Interrogation: | | | 03/30/2018 Refer to [facility] documentation and remote PDF scanned into | | | [facility] for remote interrogation results. Data collected by Marisela Dove | | | [place] James Presenting rhythm: Sinus rhythm 73-78 beats. 1 Symptom | | | Episode #35 occurred 03/30/18 at 8:23 PM. EGM is consistent with sinus | | | rhythm to sinus tachycardia rate 66-104 beats with PACs and artifact. | | | 0 Tachy Episodes 0 Pause Episodes 0 Genaro Episodes 0 AT Episodes 0 AF | | | Episodes % of time in AT/AF 0.0 %Histogram good. Battery | | | ok.Apparent normal and stable function.Device interrogation due in | | | office in June 2018.Patient notified. | | |rhythm to sinus tachycardia rate 66-104 beats with PACs and | | |artifact. | | |0 Tachy Episodes | | |0 Pause Episodes | | |0 Genaro Episodes | | |0 AT Episodes | | |0 AF Episodes | | |% of time in AT/AF 0.0 % | | |Histogram good. Battery ok. | | |Apparent normal and stable function. | | |Device interrogation due in office in June 2018. | | |Patient notified. | | | | | + + + + +---------+ + + | Performing | Address | City/State/Zipcode | Phone Number | | Organization | | | | + +---------+ + + | [facility] | | | | + +---------+ + + from Last 3 Months Insurance + +--------+ +--------+-------+---------+ | Payer | Benefi | Subscriber | Type | Phone | Address | | | t Plan | ID | | | | | | / | | | | | | | Group | | | | | + +--------+ +--------+-------+---------+ | [employer] | [employer] | [id number] | Medica | | | | | HEALTH | | re | | | | | MDCR | | | | | + +--------+ +--------+-------+---------+ + +--------+ +--------+ + + | Guarantor Name | Accoun | Relation to | Date | Phone | Billing Address | | | t Type | Patient | of | | | | | | | | | | + +--------+ +--------+ + + | ALLISON SALAMANCA | Person | Self [birth year] | Home: | [address] | | | al/Fam | | 1950 | [phone] | [place] [address] | | | jean-pierre | | | [phone] | | + +--------+ +--------+ + +
--- OUTSIDE RECORDS SUMMARY | ~2018-05-03 | XMS | Encounter Summary ---
Demographics + + + | Address | [address] | | | [place] [address] | + + + | Home Phone | | + + + | Preferred Language | Unknown | + + + | Marital Status | | + + + | Holiness Affiliation | 1041 | + + + | Race | Unknown | + + + | Ethnic Group | Unknown | + + + Author + + + | Author | [facility] | | | and [place] | + + + | Organization | [facility] | [...] Team Providers + +------+ + | Care Patrol Sergeant Name | Role | Phone | + +------+ + PCP | Unavailable | + +------+ + Reason for Visit + + + | Reason | Comments | + + + | Device Check | Billed | | (Remote) | | + + + Encounter Details +--------+ + + + + | Date | Type | Department | Care Team | Description | +--------+ + + + + | 04/25/ | Implant | [facility] | Deangelo Mcguire, | Remote Device | | 2018 | Monitor | CARDIOLOGY [address] | [address] | Interrogation | | | | [place], | [place], | (Primary Dx); Status | | | | [place] [address] | [place] [address] | post placement of | | | | [phone] | [phone] | implantable loop | | | | [...] | | | | | [place], | | | | | | [place] [address] | | | | | | [phone] | | | | | | | [...] this encounter Results Device Interrogation - Remote (04/25/2018 1515) + + + | Narrative | Performed At | + + + | Deangelo | JOVANNA | | MD Shayla 04/06/2018 14:51Date of Remote Interrogation: | | | 03/30/2018 Refer to [facility] documentation and remote PDF scanned into | | | [employer] for remote interrogation results. Data collected by [...] post placement of implantable loop recorder Medtronic Shayla 09/19/16 | + + | Paroxysmal atrial fibrillation (HCC) | + + | Atrial fibrillation | + +"
--- OUTSIDE RECORDS SUMMARY | ~2018-05-03 | XMS | Encounter Summary ---
Demographics + + + | Address | [address] | | | [place] [address] | + + + | Home Phone | | + + + | Preferred Language | Unknown | + + + | Marital Status | | + + + | Jain Affiliation | 1041 | + + + | Race | Unknown | + + + | Ethnic Group | Unknown | + + + Author + + + | Author | [facility] | | | and [place] | + + + | Organization | [facility] | | | and [place] [...] Team Providers + +------+ + | Care Fine Arts Chair Name | Role | Phone | + [...] | | CARDIOLOGY [address] | [place] [employer] [address] | | | | | [place], | [place], | | | | | [place] [address] | [place] [address] | | | | | [phone] | [phone] | | | | | | | [...] [place], | | | | | | [place] [address] | | | | | | [phone] | | | | | | | | +--------+---------+ + + + as of this encounter Visit Diagnoses Not on filein this encounter"
--- OUTSIDE RECORDS SUMMARY | ~2018-05-03 | XMS | Clinical Summary ---
Demographics + + + | Address | [address] | | | [place] [address] | + + + | Home Phone | | + + + | Preferred Language | Unknown | + + + | Marital Status | | + + + | Jain Affiliation | 1041 | + + + | Race | Unknown | + + + | Ethnic Group | Unknown | + + + Author + + + | Author | [facility] | | | and [place] | + + + | Organization | [facility] | | | and [place] [...] Team Providers + +------+ + | Care Physical Therapy Manager Name | Role | Phone | + [...] Reveal Linq Loop Recorder [id number] | | [id number]: Atrial flutter | + + + + + | Sleep apnea | 08/03/2016 | + + + | Morbid obesity (HCC) | 08/03/2016 | + + + | Mixed hyperlipidemia | 05/13/2016 | + + + | Paroxysmal atrial fibrillation (HCC) | | + + + + + | Overview: 01/02/17--Successful DC cardioversion. No apparent | | complicationsNoted on ECGs from [place] from 08/30/16 and | | 08/16/16.Echocardiogram 05/13/2016 [...] + | 04/25/ | Implant | | Deangelo Mcguire, | [...] + | Mother | | | [place] | | | | (Age | | [...] | | | | | | [place] [address] | | | | | | [phone] | | | | | | | [...] Lot | + +--------+------+ +--------+--------+--------+ | Linq [id number]: Qty: 1 | Implan | | MEDTRONIC [...] Months Results Device Interrogation - Remote (04/25/2018 1296)Only the most recent of 4 results within the time period is included. + + + | Narrative | Performed At | + + + | Deangelo | JOVANNA | | MD Shayla 04/06/2018 14:51Date of Remote Interrogation: | | | 03/30/2018 Refer to [facility] documentation and remote PDF scanned into | | | [facility] for remote interrogation results. Data collected by [...] | [employer] | [employer] | [id number] | [employer]ica | | | | | [...] Self | [birth year] | Home: | [address] | | | al/Fam | | 1950 | [phone] | [place] [address] | | | jean-pierre | | | [phone] | | + +--------+ +--------+ + +
--- OUTSIDE RECORDS SUMMARY | ~2018-05-03 | XMS | Clinical Summary ---
Demographics + + + | Address | [address] | | | [place] [address] | + + + | Home Phone | | + + + | Preferred Language | Unknown | + + + | Marital Status | | + + + | Bahai Affiliation | 1041 | + + + | Race | Unknown | + + + | Ethnic Group | Unknown | + + + Author + + + | Author | [facility] | + + + | Organization | [facility] | + + + | Address | Unknown | + + + | Phone | Unavailable | + + + Support + + + + + | Name | Relationship | Address | Phone | + + + + + | Cindi Salamanca | ECON | [address] | | | | | [place] | | | | | [phone] | | + + + + + Care Team Providers + +------+ + | Care Client Partner Name | Role | Phone | + [...] | | | | | | RVR ([facility]), ARF | | | | | | | | (acute renal | | | | | | | | failure) ([facility]), | | | | | | | | Diabetes mellitus, | | | | | | | | type 2 ([facility]), GERD | | | | | | [...] | | | | | | | ([facility]) | | | | | | | [...] | | | | | | | ([facility]) | | | | | | | [...] | 02/16/2014 | + + + | shelter (current) use of anticoagulants | | + [...] | [employer] | [employer] | [id number] | | | | | | HEALTH | | | | | | | PLAN | | | | | + +--------+ +------+-------+ + | MEDICAID | [place] | [id number] | | | [address] | | | [place] | | | | [place] | | | [place] | | | | [address] | | | MEDICAL ORDERLY | | | | | + +--------+ [...] | Self | [birth year] | Home: | [address] [place] [address] | | | al/Fam | | 1950 | [phone] | [place] | | | jean-pierre | | | [phone] | [address] | + +--------+ +--------+ + +
--- OUTSIDE RECORDS SUMMARY | ~2018-05-03 | XMS | Encounter Summary ---
Demographics + + + | Address | [address] | | | [place] [address] | + + + | Home Phone | | + + + | Preferred Language | Unknown | + + + | Marital Status | | + + + | Alevism Affiliation | 1041 | + + + | Race | Unknown | + + + | Ethnic Group | Unknown | + + + Author + + + | Author | [facility] | | | and [place] | + + + | Organization | [facility] | | | and [place] | [...] Team Providers + +------+ + | Care Book Agent Name | Role | Phone | + [...] + + | 02/20/ | Implant | [facility] [place] | ClaudioashleighstephenieDeangelo, | Remote Device | | 2017 | Monitor | CARDIOLOGY [address] | MD [address] | Interrogation | | | | [place], | [place], | (Primary Dx); Status | | | | [place] [address] | [place] [address] | post placement of | | | | [phone] | [phone] | implantable loop | | | | [...] 2018 | Visit | | [address] | | | | | | [place], | | | | | | [place] [address] | | | | | | [phone] | | | | | | | [...] this encounter Results Device Interrogation - Remote (02/22/2018) + + + | Narrative | Performed At | + + + | Deangelo | JOVANNA | | MD Shayla 02/22/2018 16:07Refer to [employer] documentation | | | and remote PDF scanned into [employer] for remote interrogation | | | results. Data collected by Marisela James RN Presenting | | | rhythm: Sinus rhythm 67-70 beats.1 Symptom Episode #30 occurred | | | 02/20/18 at 11:17 AM. EGM is consistent with sinus rhythm 62-90 beats | | | with artifact. 0 Tachy Episodes0 Pause Episodes 0 Genaro Episodes 0 AT | | | Episodes 1 AF Episodes the longest occurred 12/31/17 at 5:19 AM for 2 | | | hours 56 minutes. EGM is consistent with atrial fibrillation with | | | ventricular response 60-160 beats.% of time in AT/AF 0.1 %Histogram | | | good. Battery ok.Apparent normal and stable function.Device | | | interrogation due in office in March 2018.Patient notified. | | |0 Genaro Episodes | | |0 AT Episodes | | |1 AF Episodes the longest occurred 12/31/17 at 5:19 AM for 2 hours | | |56 minutes. EGM is consistent with atrial fibrillation with | | |ventricular response 60-160 beats. | | |% of time in AT/AF 0.1 % | | |Histogram good. Battery ok. | | |Apparent normal and stable function. | | |Device interrogation due in office in March 2018. | | |Patient notified. | | | | | + + + + + | Procedure Note | + + | Deangelo Mcguire MD - 02/20/2018 9993 PDT Refer to [employer] documentation and remote | | PDF scanned into [employer] for remote interrogation results. Data collected by Marisela Dove | | Mack James rhythm: Sinus rhythm 67-70 beats.1 Symptom Episode #30 occurred | | 02/20/18 at 11:17 AM. EGM is consistent with sinus rhythm 62-90 beats with artifact. 0 | | Tachy Episodes0 Pause Episodes 0 Genaro Episodes 0 AT Episodes 1 AF Episodes the longest | | occurred 12/31/17 at 5:19 AM for 2 hours 56 minutes. EGM is consistent with atrial | | fibrillation with ventricular response 60-160 beats.% of time in AT/AF 0.1 %Histogram | | good. Battery ok.Apparent normal and stable function.Device interrogation due in office | | in March 2018.Patient notified. | |0 AT Episodes | |1 AF Episodes the longest occurred 12/31/17 at 5:19 AM for 2 hours 56 minutes. EGM is consist ent with atrial fibrillation with ventricular response 60-160 beats. | |% of time in AT/AF 0.1 % | |Histogram good. Battery ok. | |Apparent normal and stable function. | |Device interrogation due in office in March 2018. | |Patient notified. | + + + +---------+ + + | [...]
--- OUTSIDE RECORDS SUMMARY | ~2018-05-03 | XMS | Encounter Summary ---
Demographics + + + | Address | [address] | | | [place] [address] | + + + | Home Phone | | + + + | Preferred Language | Unknown | + + + | Marital Status | | + + + | Confucianism Affiliation | 1041 | + + + | Race | Unknown | + + + | Ethnic Group | Unknown | + + + Author + + + | Author | [facility] | | | and [place] | + + + | Organization | [facility] | | | and [place] [...] Team Providers + +------+ + | Care Director Of Software Development Name | Role | Phone | + [...] + + | 04/06/ | Office | [facility] | Deangelo Mcguire, | Atrial fibrillation, | | 2017 | Visit | CARDIOLOGY [address] | [address] [place] | unspecified type | | | | [place], | 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 She [...] cardioversion 08/16/2016. ECG at that visit at [facility] shows atrial fibrillation with rapid ventricular response 152 beats per minute. F.Recurrent event 08/30/16 seen by emergency department at [facility]. Initial ECG shows atrial fibrillation with [...] is in a cl ass I of [place] Heart Association functional class. There is no fluid retention on physic al examination. Risk of stroke is reviewed today; her risk factors are Diabetes (1) and Female Gender (1 ), giving her a [id number] of 2, estimating a 2=2.2% risk of [...] to 6.2. The 10-year ASCVD risk score (Bridgeton DC Jr., et al., 2013) is: 16.7% [...] reviewed and edited this note. Jayna Nick System Administration Advisor 04/06/2018 I, Deangelo Mcguire MD, personally performed the services described in this documentation, as scribed in my presence and it is both accurate and complete. Jayna Nick, Med Ass t 04/06/2018 8:40 Electronically signed by: Deangelo Mcguire MD [facility] 04/06/2018 Portions of this chart may have been created with Mochila voice recognition software. Occasi onal wrong-word or [...] 2018 | Visit | | MD Lu Hartmann | | | | | | [place], | | | | | | [place] [address] | | | | | | [phone] | | | | | | | | +--------+---------+ + + + as of this encounter Visit Diagnoses + + | Diagnosis | + + | Atrial fibrillation, unspecified type (HCC) - Primary | + +
--- OUTSIDE RECORDS SUMMARY | ~2018-05-03 | XMS | Encounter Summary ---
Demographics + + + | Address | [address] | | | [place] [address] | + + + | Home Phone | | + + + | Preferred Language | Unknown | + + + | Marital Status | | + + + | Hoahaoism Affiliation | 1041 | + + + | Race | Unknown | + + + | Ethnic Group | Unknown | + + + Author + + + | Author | [facility] | | | and [place] | + + + | Organization | [facility] | | | and [place] [...] Team Providers + +------+ + | Care Ground Hand Name | Role | Phone | + [...] CARDIOLOGY [address] | MD [address] | Interrogation | | | | [place], | [place], | (Primary Dx); Status | | | | [place] [address] | [place] [address] | post placement of | | | | [phone] | [phone] | implantable loop | | | | [...] 2018 | Visit | | [address] [place] | | | | | | [place], | | | | | | [place] [address] | | | | | | [phone] | | | | | | | [...] | | and remote PDF scanned into [employer] for remote interrogation | | | results. [...] + | Deangelo Mcguire MD - 02/20/2018 9705 PDT Refer to [facility] documentation and remote | | PDF scanned into [employer] for remote interrogation results. Data collected by [...]
--- OUTSIDE RECORDS SUMMARY | ~2018-05-03 | XMS | Encounter Summary ---
Demographics + + + | Address | [address] | | | [place] [address] | + + + | Home Phone | | + + + | Preferred Language | Unknown | + + + | Marital Status | | + + + | Christian Affiliation | 1041 | + + + | Race | Unknown | + + + | Ethnic Group | Unknown | + + + Author + + + | Author | [facility] | | | and [place] | + + + | Organization | [facility] | | | and [place] [...] Team Providers + +------+ + | Care E Commerce Marketing Analyst Name | Role | Phone | + [...] | CARDIOLOGY [address] | [address] | Interrogation | | | | [place], | [place], | (Primary Dx); Status | | | | [place] [address] | [place] [address] | post placement of | | | | [phone] | [phone] | implantable loop | | | | [...] [place], | | | | | | [place] [address] | | | | | | [phone] | | | | | | | [...] encounter Results Device Interrogation - Remote (04/25/2018 2617) + + + | Narrative | Performed At | + + + | Deangelo | JOVANNA | | MD Shayla 04/06/2018 14:51Date of Remote Interrogation: | | | 03/30/2018 Refer to P[employer]art documentation and remote PDF scanned into | | | [employer] for remote interrogation results. Data collected by [...]
--- OUTSIDE RECORDS SUMMARY | ~2018-05-03 | XMS | Encounter Summary ---
Demographics + + + | Address | [address] | | | [place] [address] | + + + | Home Phone | | + + + | Preferred Language | Unknown | + + + | Marital Status | | + + + | Yazidism Affiliation | 1041 | + + + | Race | Unknown | + + + | Ethnic Group | Unknown | + + + Author + + + | Author | [facility] [place] | | | and [place] | + + + | Organization | [facility] | | | and [place] [...] Team Providers + +------+ + | Care Associate Professor Of Archaeology Name | Role | Phone | + [...] + + | 09// | Telephone | [facility] | Deangelo Mcguire, | Results | | 2017 | | CARDIOLOGY [address] | MD [address] | | | | | [place], | [place], | | | | | [place] [address] | [place] [address] | | | | | [phone] | [phone] | | | | | | | [...] | | | | | | [place] [address] | | | | | | [phone] | | | | | | | | +--------+---------+ + + + as of this encounter Visit Diagnoses Not on filein this encounter"
[~2018-05-03 16:52] MED LIST changes: +GABAPENTIN300 MG PO; +LASIX40 MG PO; +LISINOPRIL5 MG PO; +POTASSIUM CHLO10 MEQ PO; +SOTALOL80 MG PO
--- OUTSIDE RECORDS SUMMARY | 2018-05-03 16:56 | XMS ---
PreManage Notification: ALLISON NEGRO Security Risk Officer Events No recent Security Events currently on file CRITERIA MET - Group Notification CARE PROVIDERS Pete Shelton MD PHONE: Unknown DR JEWELS SHELTON Primary Care 08/24/2016-Current PHONE: [phone] Hugh has no Care Guidelines for this patient. Vicky VISIT COUNT (12 MO.) Carlita Escobar TOTAL 2 NOTE: Visits indicate total known visits. 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
--- NOTE | 2018-05-04 08:24 | EKG ---
[facility] [address] [facility] [place] [address] Signed Normal sinus rhythm Nonspecific ST and T wave abnormality Abnormal ECG When compared with ECG of 08-SEP-2017 00:37, No significant change was found Confirmed by SONYA DOBBS MD ([id number]) on 05/04/2018 8:24:30 AM Electronically Signed By: SONYA DOBBS MD 05/04/18 0824 PATIENT NAME: JONI NEGROAZALEA GRAFF Electrocardiogram DATE OF : 50 PHYSICIAN: SONYA DOBBS MD REPORT #: [id number] REPORT IS CONFIDENTIAL AND NOT TO BE RELEASED WITHOUT AUTHORIZATION
== END 2018-05-03 20:56 | disposition home or self-care (01) ==
LOC: ED 16:52
DX: R07.2 Precordial pain (principal); I10 Essential (primary) hypertension; E11.9 Type 2 diabetes mellitus without complications; I48.91 Unspecified atrial fibrillation; I48.92 Unspecified atrial flutter; Z88.8 Allergy status to other drugs, medicaments and biological substances; Z79.4 Long term (current) use of insulin; Z79.899 Other long term (current) drug therapy
CPT/HCPCS: 71046; 80053; 84484; 85025; 85610; 85730; 93005; 93010; 99285

== ENCOUNTER 2018-11-30 19:50 | Emergency (ER) | payer MEDICARE ==
[~2018-11-30] VITALS: Ht 172.7 cm; Wt 122.5 kg
--- OUTSIDE RECORDS SUMMARY | 2018-11-30 19:54 | XMS ---
PreManage Notification: ALLISON NEGRO Security Public Housing Interviewer Events No recent Security Events currently on file CRITERIA MET - Group Notification - [facility] Guidelines CARE PROVIDERS JUICE SHELTON Family Medicine 05/04/2018-Current PHONE: Unknown Juice Shelton Treatment Current [place] PHONE: Unknown DR JEWELS SHELTON Primary Care 08/24/2016-Current PHONE: [phone] [facility] has no Care Guidelines for this patient. Care History Medical/Surgical 2018 [facility] [place] [facility] APT WITH DR HOLDER MOVED UP TO May @ 3:30PM. 05/04/2018 [facility] - [facility] RECEIVED- ED PHYSICIAN CONSULT- HELP PATIENT FOLLOW UP WITH AN EXPEDITED FOLLOW UP WITH PROPOSAL ENGINEER IN [place]. - CHW CALLED DR ELVIA FABIAN AT [place] RBOAPCIAQW-[phone]. - PATIENT HAS A FOLLOW UP APT IN SEPTEMBER. CHW STATED DUE TO ED VISIT AN EXPEDITED APT WILL NEED TO BE MADE. - [facility]W SENT ED RECORDS TO [place] [facility] AND CONFIRMED THE RECORDS WERE RECEIVED. - [place] [facility] WILL BE CONTACTING PATIENT TO SET UP AN EARLIER APT WITH PATIENT. - [facility] CALLED PATIENT AND LEFT PATIENT 2 MESSAGES. E.D. VISIT COUNT (12 MO.) 2 [facility]. TOTAL 2 NOTE: Visits indicate total known visits. 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
--- NOTE | 2018-12-01 21:34 | EKG ---
[facility] [address] [facility] [place] [address] Signed Normal sinus rhythm Nonspecific ST abnormality Baseline artefact present Abnormal ECG When compared with ECG of 03-MAY-2018 16:58, No significant change was found Confirmed by SONYA DOBBS MD ([id number]) on 12/01/2018 9:34:13 PM Electronically Signed By: SONYA DOBBS MD 12/01/18 2134 PATIENT NAME: ALLISON NEGRO Electrocardiogram DATE OF : 50 PHYSICIAN: SONYA DOBBS MD REPORT #: [id number] REPORT IS CONFIDENTIAL AND NOT TO BE RELEASED WITHOUT AUTHORIZATION
== END 2018-12-01 00:09 | disposition home or self-care (01) ==
LOC: ED 19:50
DX: R07.89 Other chest pain (principal); I10 Essential (primary) hypertension; E11.9 Type 2 diabetes mellitus without complications; I48.91 Unspecified atrial fibrillation; Z90.710 Acquired absence of both cervix and uterus; Z90.49 Acquired absence of other specified parts of digestive tract; Z90.89 Acquired absence of other organs; Z91.048 Other nonmedicinal substance allergy status; Z79.4 Long term (current) use of insulin; Z79.899 Other long term (current) drug therapy
CPT/HCPCS: 71045; 80053; 83735; 84484; 85025; 85610; 93005; 93010; 99284-25

== ENCOUNTER → 2020-11-11 | Emergency (ER) | payer MEDICARE ==
[~2020-11-11] VITALS: Ht 172.7 cm; Wt 117.9 kg
[~2020-11-11] MED LIST changes: +CEFPODOXIME PR200 MG PO
--- NOTE | 2020-11-11 22:33 | EKG ---
[facility] [address] [facility] [place] [address] Signed Sinus bradycardia with 1st degree AV block Prolonged QT Abnormal ECG When compared with ECG of 01-OCT-2020 21:12, premature ventricular complexes are no longer present QT has lengthened Confirmed by SEBASTIAN AHUJA MD ([id number]) on 11/11/2020 10:33:46 PM Electronically Signed By: SEBASTIAN AHUJA MD 11/11/202232 PATIENT NAME: ALLISON NEGRO Electrocardiogram DATE OF : 50 PHYSICIAN: SEBASTIAN AHUJA MD REPORT #: [id number] REPORT IS CONFIDENTIAL AND NOT TO BE RELEASED WITHOUT AUTHORIZATION
== END ==
LOC: ED 14:39
PROC: 0T9B70Z Drainage of Bladder with Drainage Device, Via Natural or Artificial Opening (ICD-10-PCS; principal; 2020-11-11)
DX: E11.10 Type 2 diabetes mellitus with ketoacidosis without coma (principal); N17.9 Acute kidney failure, unspecified; N39.0 Urinary tract infection, site not specified; Z20.822 Contact with and (suspected) exposure to COVID-19; I10 Essential (primary) hypertension; I48.91 Unspecified atrial fibrillation; Z88.8 Allergy status to other drugs, medicaments and biological substances; Z79.4 Long term (current) use of insulin; Z79.899 Other long term (current) drug therapy
CPT/HCPCS: 51702; 71045; 80053; 81001; 82803; 83605; 85025; 87040; 87077; 87088; 87186; 93005; 93010; 99285-25; C9803; J0696; J2405; J7030; U0003